=== PATIENT | female | born 1945 | race Caucasian/White ===

== ENCOUNTER 2018-09-01 16:35 | Emergency (ER) ==
[2018-09-01 16:43] VITALS: BP 174/74; TEMP 97.8; BMI 32.3
--- NOTE | 2018-09-01 17:57 | ED.PDOC ---
General ED Provider: Dr. ANDREW CHAN Chief Complaint: Nausea/Vomiting Stated Complaint: nausea, vomiting Time Seen by Physician: 16:40 (seen with her nurse at all times vomited x 2 ) Mode of Arrival: Walk-In Information Source: Patient, Family Exam Limitations: No limitations Nursing and Triage Documentation Reviewed and Agree: Yes Does patient meet sepsis criteria?: No If yes, has appropriate treatment been initiated?: No System Inflammatory Response Syndrome: Not Applicable Sepsis Protocol: For patient's 13 years and over: Temp is 96.8 and below OR 101 and greater Pulse >90 BPM Resp >20/minute Acutely Altered Mental Status Are patient's symptoms suggestive of a new infection, such as: -Pneumonia -Skin, Soft Tissue -Endocarditis -UTI -Bone, Joint Infection -Implantable Device -Acute Abdominal Infection -Wound Infection -Meningitis -Blood Stream Catheter Infection -Unknown GI Complaint Exam - Vomiting/Diarrhea Complaint/Exam Onset/Duration: today shortly P.T.A. ARRIVED IN NO DISTRESS Episodes of Vomiting over last 24 Hours: 2 Episodes of Diarrhea Over Last 24 Hours: 0 Initial Severity: Mild Current Severity: None Character of Vomiting: Reports: Non-bilious Aggravating: Reports: None Alleviating: Reports: None Associated Signs and Symptoms: Denies: Dizziness, Light-headedness, Melena, Hematemesis, Fever, Abdominal pain, Cramping Surgical Obstruction Risk Factors: Reports: None Related Surgical History: Reports: None Abdominal Findings: Present: None Differential Diagnoses: Viral Gastroenteritis Review of Systems - Review Of Systems Constitutional: Reports: No symptoms Eyes: Reports: No symptoms Ears, Nose, Mouth, Throat: Reports: No symptoms Respiratory: Reports: No symptoms Cardiac: Reports: No symptoms GI: Reports: Abdominal pain, Vomiting : Reports: No symptoms Musculoskeletal: Reports: No symptoms Skin: Reports: No symptoms Neurological: Reports: No symptoms Endocrine: Reports: No symptoms Hematologic/Lymphatic: Reports: No symptoms All Other Systems: Reviewed and Negative Past Medical History - Past Medical History Previously Healthy: Yes Endocrine: Reports: Dyslipidemia Cardiovascular: Reports: Hypertension Respiratory: Reports: None Hematological: Reports: None Gastrointestinal: Reports: None Genitourinary: Reports: None Neuro/Psych: Reports: None Musculoskeletal: Reports: None Cancer: Reports: None Last Menstrual Period: N/A - Surgical History General Surgical History: Reports: None - Family History Family History: Reports: None - Social History Smoking Status: Never smoker Hx Substance Use: No Alcohol Screening: Occasionally Physical Exam - Physical Exam Appearance: Well-appearing, No pain distress, Well-nourished Eyes: CHELE, EOMI, Conjunctiva clear ENT: Ears normal, Nose normal, Oropharynx normal Respiratory: Airway patent, Breath sounds clear, Breath sounds equal, Respirations nonlabored Cardiovascular: RRR, Pulses normal, No rub, No murmur GI/: Soft, Nontender, No masses, Bowel sounds normal, No Organomegaly Musculoskeletal: Normal strength, ROM intact, No edema, No calf tenderness Skin: Warm, Dry, Normal color Neurological: Sensation intact, Motor intact, Reflexes intact, Cranial nerves intact, Alert, Oriented Psychiatric: Affect appropriate, Mood appropriate Re-Evaluation - Re-Evaluation Time of Re-Evaluation: 17:58 [facility] Status: Improved Vital Signs Stable: Yes Pain Level: 0 Appearance: NAD Lungs: Clear Skin: Warm and Dry Neuro: Alert and Oriented X3 CV: RRR Critical Care Note - Critical Care Note Total Time (mins): 0 Course - Course Hematology/Chemistry: 09/01/18 17:02 09/01/18 17:02 Orders, Labs, Meds: Lab Review 09/01/18 09/01/18 09/01/18 17:02 17:02 17:22 WBC 7.87 RBC 4.56 Hgb 13.6 Hct 40.2 MCV 88.2 MCH 29.8 MCHC 33.8 RDW Coeff of [place] 13.2 Plt Count 205 Immature Gran % (Auto) 0.3 Neut % (Auto) 83.9 Lymph % (Auto) 8.6 L [place] % (Auto) 5.8 Eos % (Auto) 0.5 Baso % (Auto) 0.9 Immature Gran # (Auto) 0.0 Neut # (Auto) 6.6 Lymph # (Auto) 0.7 [place] # (Auto) 0.5 Eos # (Auto) 0.0 Baso # (Auto) 0.1 Sodium 134.9 L Potassium 3.67 Chloride 97.0 L Carbon Dioxide 31.2 H Anion Gap 10.37 BUN 18.8 H Creatinine 0.92 Estimated GFR (MDRD) 60.00 BUN/Creatinine Ratio 20.43 Glucose 138.3 H Calcium 9.10 Total Bilirubin 0.43 AST 25.4 ALT 18.2 Alkaline Phosphatase 74.3 Total Protein 7.22 Albumin 4.27 Globulin 2.95 Albumin/Globulin Ratio 1.44 Amylase 70.2 Lipase 46.5 Urine Color Urine Clarity Urine pH Ur Specific [place] Urine Protein Urine Glucose (UA) Urine Ketones Urine Blood Urine Nitrite Urine Bilirubin Urine Urobilinogen Ur Leukocyte Esterase Urine Microscopic RBC Urine Microscopic WBC Ur Squamous Epith Cells Amorphous Sediment Urine Bacteria Influ A Molecular Assay Negative by naat Influ B Molecular Assay Negative by naat 09/01/18 17:22 WBC RBC Hgb Hct MCV MCH MCHC RDW Coeff of [place] Plt Count Immature Gran % (Auto) Neut % (Auto) Lymph % (Auto) [place] % (Auto) Eos % (Auto) Baso % (Auto) Immature Gran # (Auto) Neut # (Auto) Lymph # (Auto) [place] # (Auto) Eos # (Auto) Baso # (Auto) Sodium Potassium Chloride Carbon Dioxide Anion Gap BUN Creatinine Estimated GFR (MDRD) BUN/Creatinine Ratio Glucose Calcium Total Bilirubin AST ALT Alkaline Phosphatase Total Protein Albumin Globulin Albumin/Globulin Ratio Amylase Lipase Urine Color Yellow Urine Clarity Slightly Urine pH 7.5 Ur Specific [place] 1.015 Urine Protein Negative Urine Glucose (UA) Negative Urine Ketones Negative Urine Blood Trace-intact Urine Nitrite Negative Urine Bilirubin Negative Urine Urobilinogen 0.2 Ur Leukocyte Esterase Negative Urine Microscopic RBC 0-2 Urine Microscopic WBC 0-2 Ur Squamous Epith Cells 20-30 Amorphous Sediment 2+ Urine Bacteria 2+ Influ A Molecular Assay Influ B Molecular Assay Orders Category Date Time Status AMYLASE Stat LAB 09/01/18 16:52 Ordered BLOOD CULTURE (ED ONLY) Stat LAB 09/01/18 Ordered CBC W/ AUTO DIFF Stat LAB 09/01/18 16:52 Ordered COMPREHENSIVE METABOLIC PANEL Stat LAB 09/01/18 16:52 Ordered FLU A/B MOLECULAR Stat LAB 09/01/18 16:52 Uncollected LIPASE Stat LAB 09/01/18 16:52 Ordered MOLECULAR GROUP A STREP Stat LAB 09/01/18 16:52 Uncollected URINALYSIS C & S IF INDICATED Stat LAB 09/01/18 16:52 Uncollected URINE CULTURE Stat LAB 09/01/18 17:22 Received CHEST, 2 VIEWS PA & LAT Stat RADS 09/01/18 16:[address] ABDOMEN/PELVIS WO CONTRAST Stat RADS 09/01/18 16:52 Ordered Vital Signs: Temp Pulse Resp BP Pulse Ox 09/01/18 16:38 97.8 F 67 20 174/74 H 94 L Departure - Departure Time of Disposition: 19:00 Disposition: HOME SELF-CARE Discharge Problem: Nausea, Vomiting Instructions: Dehydration (ED), Acute Nausea and Vomiting (ED), Abdominal Pain (ED) Condition: Good Pt referred to PMD for follow-up: Yes IPMP verified?: No Additional Instructions: Please call your Family Physician as soon as possible to schedule a follow-up appointment. Allergies/Adverse Reactions: Allergies No Known Allergies Allergy (Unverified 09/01/18 16:44) Home Medications: Ambulatory Orders Aspirin [Aspir-Low] 81 mg PO DAILY 09/01/18 Bisoprolol/Hydrochlorothiazide [Bisoprolol-Hctz 5-6.25 mg Tab] 1 each PO DAILY 09/01/18 Clonazepam 0.5 mg PO DAILY 09/01/18 Colesevelam HCl [Welchol] 625 mg PO DAILY 09/01/18 Escitalopram Oxalate 10 mg PO DAILY 09/01/18 Estradiol 1 mg PO DAILY 09/01/18 Levothyroxine Sodium 125 mcg PO DAILY 09/01/18 Magnesium Oxide [Mag-Ox] 400 mg PO BID 09/01/18 Meloxicam 15 mg PO DAILY 09/01/18 Simvastatin 40 mg PO DAILY 09/01/18
--- NOTE | 2018-09-01 18:13 | CT ---
EXAM: CT abdomen and pelvis without contrast HISTORY: Abdominal pain TECHNIQUE: Multi-slice transaxial helical with coronal and sagittal reformed images COMPARISON: None FINDINGS: The lung bases are free of acute airspace or interstitial opacities. The heart size is nor mal. There are no pericardial or pleural effusions. A nodule right middle lobe is 2.8 mm. The guide attenuation is normal relative to the spleen. The gallbladder is present without biliary d ilatation. The pancreas adrenal glands are grossly normal. The spleen has normal size attenuation. The kidneys and ureters are grossly normal. The nonopacified bladder is nearly empty difficult to as sess. The uterus is surgically absent and there are no adnexal masses. There is suggestion of a siddharth endectomy. A few small bowel loops are minimally dilated without distension. Diverticula arise from large bowel without CT evidence of diverticulitis. No lymphadenopathy or ascites are detected. The aorta is atherosclerotic with normal caliber. The bones are free of suspicious osteolytic or osteoblastic lesions. IMPRESSION: 1. Possible enteritis and/or ileus. Nonobstructive intestinal gas pattern. Colonic diverticulosis without CT evidence of diverticulitis. Suggestion of previous appendectomy. 2. Previous hysterectomy without adnexal masses. 3. No lymphadenopathy or ascites. 4. ASCVD. 5. 2.8 mm nodule in the middle lobe. Please see followup per induced lobe. Comment: [employer] Recommendations on Incidental Solid Pulmonary Nodule Follow-up: Low risk patient: (no history of smoking, cancer, or other known risk factors) < 6mm - no follow-up needed > 6-8mm - inital at 6-12 months, then 18-24 months if no change > 8mm - Consider CT, PET/CT, or biopsy at 3 months High risk patient: (history of smoking or other risk factors) < 6mm - optional CT at 12 months if suspicious morophology or upper lobe location > 6-8mm - initial CT at 6-12 months, then CT at 18-24 months > 8mm - same as low risk
--- NOTE | 2018-09-01 18:15 | DI ---
EXAM: Two-view chest HISTORY: Cough COMPARISON: None. FINDINGS: The heart is normal in size. Atherosclerotic changes are seen involving arch. The descen ding thoracic aorta is tortuous. There are benign granulomatous changes without evidence of active p ulmonary disease. Clips are seen in the base of the neck bilaterally. Degenerative changes are seen in the mid dorsal spine IMPRESSION: No evidence of active pulmonary disease
== END 2018-09-01 18:30 | disposition home or self-care (01) ==
LOC: ED 16:35
DX: R11.2 Nausea with vomiting, unspecified (principal); R10.9 Unspecified abdominal pain; E78.5 Hyperlipidemia, unspecified; I10 Essential (primary) hypertension; R94.31 Abnormal electrocardiogram [ECG] [EKG]; Z79.899 Other long term (current) drug therapy
CPT/HCPCS: 36415; 80053; 81001; 82150; 83690; 85025; 87040; 87086; 87502; 87651; 93005; 93010; 99283